=== PATIENT | male | born 1995 | race Caucasian/White ===

== ENCOUNTER 2023-10-12 19:00 | Emergency (ER) | payer MEDICAID ==
[~2023-10-12] VITALS: Ht 180.3 cm; Wt 99.8 kg
[2023-10-12 20:28] VITALS: BP_SYST 103; PULSE 104; RESP 16; TEMP 98; O2SAT 98
[2023-10-12] MEDS ORDERED: IBUP-1970 PO (21:20)
[2023-10-12 22:15] VITALS: BP_SYST 121; PULSE 116; RESP 16; TEMP 98.1; O2SAT 97
== END 2023-10-12 22:16 | disposition home or self-care (01) ==
LOC: SED 19:00
DX: S62.327A Displaced fracture of shaft of fifth metacarpal bone, left hand, initial encounter for closed fracture (principal); Z79.899 Other long term (current) drug therapy; Y04.0XXA Assault by unarmed brawl or fight, initial encounter; Y93.89 Activity, other specified; Y92.89 Other specified places as the place of occurrence of the external cause; Y99.8 Other external cause status
CPT/HCPCS: 99283